=== PATIENT | female | born 1955 | race Caucasian/White ===

== ENCOUNTER → 2017-10-15 | Outpatient (CLI) | payer BC ==
--- NOTE | 2017-10-15 13:32 | DIAGNOSTIC IMAGING REPORT ---
TRANSVAG-FEMALE PELVIS HISTORY: Mass MASS AND LUMP COMPARISON: None. FINDINGS: Uterus: Midline in location. Maximum dimension 6 cm. Endometrial stripe: 4 mm Right ovary: Not identified due to overlying bowel content. Left ovary: Maximum dimension 5.5 x 5.0 cm. This includes a primarily cystic structure measuring measuring 5 x 3 cm with what appears to be mural nodularity measuring 1.5 cm. There is at least one internal septation. Several calcifications are identified. Miscellaneous:No pelvic free fluid. IMPRESSION: 1. Complex left ovarian primarily cystic mass measuring 5 x 3 cm. 2. This cystic mass is associated with mural nodularity, internal septations, as well as several focal areas of calcification. 3. Given the patient's age, this is considered potentially neoplastic. 4. SKI INSTRUCTOR consultation is suggested. The above report was generated using voice recognition software. It may contain grammatical, syntax or spelling errors. Electronically signed by: Andrés Maddox M.D. 10/15/2017 1:30 PM Dictated Date/Time: 10/15/2017 1:26 PM
--- NOTE | 2017-10-17 08:48 | DIAGNOSTIC IMAGING REPORT ---
TRANSVAG-FEMALE PELVIS HISTORY: Mass MASS AND LUMP COMPARISON: None. FINDINGS: Uterus: Midline in location. Maximum dimension 6 cm. Endometrial stripe: 4 mm Right ovary: Not identified due to overlying bowel content. Left ovary: Maximum dimension 5.5 x 5.0 cm. This includes a primarily cystic structure measuring measuring 5 x 3 cm with what appears to be mural nodularity measuring 1.5 cm. There is at least one internal septation. Several calcifications are identified. Miscellaneous:No pelvic free fluid. IMPRESSION: 1. Complex left ovarian primarily cystic mass measuring 5 x 3 cm. 2. This cystic mass is associated with mural nodularity, internal septations, as well as several focal areas of calcification. 3. Given the patient's age, this is considered potentially neoplastic. 4. CAB SUPERVISOR consultation is suggested. The above report was generated using voice recognition software. It may contain grammatical, syntax or spelling errors. Electronically signed by: Andrés Maddox M.D. 10/15/2017 1:30 PM Dictated Date/Time: 10/15/2017 1:26 PM
== END | disposition home or self-care (01) ==
LOC: C.ULTRBC 12:11
PROVIDERS: ATTEND Internal Medicine Gastroenterology
DX: R10.32 Left lower quadrant pain (principal); R19.04 Left lower quadrant abdominal swelling, mass and lump

== ENCOUNTER → 2017-10-18 | Outpatient (CLI) | payer BC ==
--- NOTE | 2017-10-18 09:55 | DIAGNOSTIC IMAGING REPORT ---
[facility] AIR ROUTINE CLINICAL HISTORY: LEFT LOWER QUAD PAIN,[place] COMPARISON STUDY: CT 10/04/2017 FLUOROSCOPY TIME: 3.1 minutes. FINDINGS: Is examination is acquired with the groundglass to moderate mixture. It is correlated with a CT study at outside institution. There are findings of mucosal irregularity of the bulk of the sigmoid colon. Limited is narrowed. The rectum appears intact. Remainder the colon is unremarkable. Scattered diverticuli are present. There is no evidence for contrast extravasation. Postoperative changes to the bowel are noted and have been described previously. IMPRESSION: 1. Long segment length of the sigmoid showing irritability and/or narrowed lumen. 2. This extends from the level superior to the rectum and extends to the juncture of the sigmoid and descending colon. 3. This, combined with the CT results suggests considerable bowel wall thickening and a combination of acute and chronic diverticulitis/diverticulosis. 4. A neoplastic process is not excluded but is considered less likely.. 5. No evidence for contrast extravasation or fistulous tract formation. The above report was generated using voice recognition software. It may contain grammatical, syntax or spelling errors. Electronically signed by: Andrés Maddox M.D. 10/18/2017 8:50 AM Dictated Date/Time: 10/18/2017 8:45 AM
== END | disposition home or self-care (01) ==
LOC: C.RAD 07:48
PROVIDERS: ATTEND Internal Medicine Gastroenterology
DX: R19.04 Left lower quadrant abdominal swelling, mass and lump (principal); R10.32 Left lower quadrant pain

== ENCOUNTER → 2017-12-12 | Outpatient (CLI) | payer BC ==
--- NOTE | 2017-12-12 14:05 | DIAGNOSTIC IMAGING REPORT ---
BAR[facility] AIR ROUTINE CLINICAL HISTORY: [id number] resection. Colorectal anastomosis. COMPARISON STUDY: 10/18/2017 FLUOROSCOPY TIME: 0.6 minutes. FINDINGS: Gastroview was administered via a rectal tube. Retrograde opacification of the colon was performed extending to the patient's left central ostomy. There are findings of scattered sigmoid diverticuli. There is no evidence for acute diverticulitis. The transverse colon is somewhat serpiginous proximal to the ostomy site with no areas of narrowing. There is no evidence for extravasation. IMPRESSION: 1. Scattered sigmoid and to a lesser extent distal colonic diverticuli. 2. Mild irritability of the sigmoid. 3. No evidence of diverticulitis. 4. Good flow of Gastroview from the rectum to the patient's ostomy site. The above report was generated using voice recognition software. It may contain grammatical, syntax or spelling errors. Electronically signed by: Andrés Maddox M.D. 12/12/2017 2:04 PM Dictated Date/Time: 12/12/2017 2:01 PM
== END ==
LOC: C.RAD 08:58
PROVIDERS: ATTEND Colon & Rectal Surgery
DX: Z09 Encounter for follow-up examination after completed treatment for conditions other than malignant neoplasm (principal)